=== PATIENT | male | born 1985 | race Two or more races ===

== ENCOUNTER → 2021-06-09 09:00 | Outpatient (CLI) | payer BC, SELFPAY ==
--- NOTE | ~2021-06-09 | US_ITS ---
EXAMINATION: US abdomen limited EXAM DATE: 06/09/2021 09:18 INDICATION: Elevated liver enzymes. TECHNIQUE: Multiple grayscale and Doppler images of the abdomen right upper quadrant were obtained (stephanie hester a technologist who performed the scan) and subsequently reviewed. There is no prior study for zeenat hernandez. FINDINGS: The pancreatic head and body are normal in appearance. The pancreatic tail is not visualized. The l iver has normal echogenicity and contour. There are no focal liver lesions identified. There is no evidence of intrahepatic biliary duct dilation. Portal venous flow was seen in the hepatopedal, nor mal direction and has normal Doppler waveform. No right-sided hydronephrosis. Common bile duct measures 4 mm, which is normal. The gallbladder wall is normal in thickness, with ex pected amount of distention. No sonographic evidence of pericholecystic fluid. There is no cholelit hiases. Technologist performing exam reports patient did not demonstrate sonographic Ortiz's sign. Please note that this sign is less reliable in patients who have received pain medication. IMPRESSION: 1. Unremarkable abdominal ultrasound exam. Reviewed, dictated and finalized at location A.
== END ==
PROVIDERS: PCP Family Medicine; Visit Provider Family Medicine
DX: R94.5 Abnormal results of liver function studies (principal)
CPT/HCPCS: 76705

== ENCOUNTER 2023-05-03 08:39 | Emergency (ER) | payer BC, SELFPAY ==
--- NOTE | ~2023-05-03 | CT_ITS ---
EXAMINATION: CT abdomen pelvis wo con DATE: 05/03/2023 09:20 INDICATION: Right flank pain TECHNIQUE: Computed tomography (CT) of the abdomen and pelvis was performed without intravenous contr ast. Automated exposure control and iterative reconstruction technique were employed. The dose-length product was 1513.98 mGy-cm. COMPARISON: 11/29/2014 FINDINGS: Lung bases are clear. Heart size is normal. No pericardial or pleural effusion. Liver, gallbladder, s pleen, pancreas and bilateral adrenal glands are normal. Kidneys and ureters are normal with no uroli thiasis, hydroureteronephrosis or perinephric/ureteral stranding. Small diverticulum at the splenic f lexure the colon without adjacent inflammatory stranding to suggest diverticulitis. Small bowel and a ppendix are normal. Bladder is normal. Small fat-containing indirect right inguinal hernia. No free i ntraperitoneal gas or fluid. No pathologically enlarged abdominal or pelvic lymphadenopathy. There is a transitional sacralized L5 segment. IMPRESSION: 1. No acute intra-abdominal/pelvic process. Specifically the gallbladder and appendix are normal and there is no urolithiasis or hydronephrosis. Reviewed, dictated and finalized at location B. IMPRESSION: 1. No acute intra-abdominal/pelvic process. Specifically the gallbladder and ap pendix are normal and there is no urolithiasis or hydronephrosis.
[2023-05-03 08:40] VITALS: BP 144/104; PULSE 83; RESP 14; TEMP 36.4; O2SAT 100
--- NOTE | 2023-05-03 09:10 | ED.BACK ---
HPI - Back Pain/Injury General Chief Complaint: Back Pain/Injury Stated Complaint: right back pain Time Seen by Provider: 05/03/23 08:58 Source: patient Mode of arrival: ambulatory Limitations: no limitations History of Present Illness HPI Narrative: Patient is a 37 y/o male who presents to the ED with c/o R mid back pain. Patient reports having fairly constant pain in his right mid back for the last 1.5 weeks. States he woke up in the middle night when the pain first began. Pain worse with movement, bending over, twisting. Denies radiation of pain down his right lower extremity or abdomen. Denies nausea, vomiting, dysuria, hematuria, incontinence, numbness, saddle anesthesia, weakness. Patient took ibuprofen for the pain once and reported mild improvement. Related Data Allergies Allergy/AdvReac Type Severity Reaction Status Date / Time No Known Allergies Allergy Verified 05/03/23 08:52 Review of Systems Review of Systems: CONSTITUTIONAL: Denies fever, chills, or sweats. GASTROINTESTINAL: Denies abdominal pain, nausea, vomiting, or diarrhea. GENITOURINARY: Denies incontinence, dysuria or hematuria. MUSCULOSKELETAL: See HPI. NEUROLOGIC: Denies headache, dizziness, numbness, or weakness. All systems reviewed & are unremarkable except as noted in HPI and below PMFSH Past Medical History Medical History DVT (deep venous thrombosis) HTN (hypertension) Moderate ankle sprain Peroneal tendinitis of left lower leg Surgical History Surgical History Hx of colonoscopy 2016 diverticulosis Family History Family History Father Hypertension Heart disease Mother Heart disease Hypertension Other HLD (hyperlipidemia) Social History Social History Smoking status: Former smoker Tobacco type: cigarettes Second hand tobacco smoke exposure: No Alcohol intake: current Drinks per week: 1 Substance use: never Substance use type: does not use Living arrangements: with family Occupation/Education: occupation Gender identity (if verbalized by the patient): Male Exam Narrative: GENERAL: Well appearing, obese with BMI of 38.4, non-toxic, in no acute distress. HEAD: Normocephalic, atraumatic. RESPIRATORY: Airway patent, respirations nonlabored. Clear to auscultation bilaterally, no rales, rhonchi, wheezing. CARDIOVASCULAR: Regular rate and rhythm ABDOMINAL: Soft, nontender, nondistended. Normoactive BS. + CVA tenderness on right. MUSCULOSKELETAL: Moves all extremities. No gross deformities. Tenderness to palpation throughout right mid back region, just below area of ribcage. No midline thoracic or lumbar spinal tenderness. Sensation intact. No palpable deformities. SKIN: Warm, dry, normal color. NEURO: A&O X3. Speech clear. PSYCHIATRIC: Appropriate mood and affect. Normal interaction. Course Vital Signs Vital signs: Vital Signs Temperature 97.6 F 05/03/23 08:40 Pulse Rate 83 05/03/23 08:40 Respiratory Rate 14 05/03/23 08:40 Blood Pressure 144/104 H 05/03/23 08:40 Pulse Oximetry 100 05/03/23 08:40 Oxygen Delivery Room Air 05/03/23 08:40 Temperature 97.6 F 05/03/23 08:40 Pulse Rate 84 05/03/23 10:20 Respiratory Rate 20 05/03/23 10:20 Blood Pressure 165/102 H 05/03/23 10:20 Pulse Oximetry 99 05/03/23 10:20 Oxygen Delivery Room Air 05/03/23 08:40 MDM - Back Pain/Injury MDM Narrative Medical decision making narrative: Patient presented to ED with 1.5 week history of right mid back pain. Aggravated with movement. Vital signs are stable upon arrival. Patient neurologically intact. No red flag symptoms. No evidence of cauda equina or cord compression at this time. Symptoms seem musculoskel
[2023-05-03] MEDS: methylPREDNISolone SOD SUCC 125 MG VIAL IM (09:26)
[2023-05-03] MEDS: ACETAMINOPHEN 500 MG TABLET 1000 MG PO (09:27)
[2023-05-03] MEDS: KETOROLAC (*BKC) 60 MG/2 ML VIAL IM (09:27)
[2023-05-03] MEDS: CYCLOBENZAPRINE HCL 5 MG TABLET PO (09:28)
[2023-05-03] MEDS: diazePAM INJ (*CRX) 10 MG/2 ML SYRINGE 2 MG IM (10:19)
[2023-05-03 10:20] VITALS: BP 165/102; PULSE 84; RESP 20; O2SAT 99
[2023-05-03 11:05] VITALS: BP 159/108; PULSE 71; RESP 17; TEMP 36.7; O2SAT 100
== END 2023-05-03 11:07 | disposition home or self-care (01) ==
PROVIDERS: Emergency Provider Physician Assistant; PCP Family Medicine
DX: M54.50 Low back pain, unspecified (principal); I10 Essential (primary) hypertension; Z86.718 Personal history of other venous thrombosis and embolism; Z87.891 Personal history of nicotine dependence
CPT/HCPCS: 74176; 96372; 99284; A9270; J1885; J2930; J3360